=== PATIENT | male | born 1945 | race Hispanic/Latino ===

== ENCOUNTER 2018-12-10 14:21 | Inpatient (IN) | payer MEDICARE ==
[~2018-12-10] VITALS: Ht 165.1 cm; Wt 73.5 kg
[2018-12-10 14:57] LABS: BASOPHILS % (AUTO) 0.6 % (0.0-5.0); HEMATOCRIT 39.2 % (42-54); LYMPHOCYTES % (AUTO) 17.9 % (21.0-51.0); MEAN CORPUSCULAR HEMOGLOBIN 31.4 pg (27.0-33.0); MEAN CORPUSCULAR HGB CONC 34.1 g/dL (32.0-36.0); MEAN CORPUSCULAR VOLUME 92.3 fL (79-99); MONOCYTES % (AUTO) 11.5 % (3.0-13.0); PLATELET COUNT (AUTO) 203 K/uL (130-400); RED BLOOD CELL COUNT(AUTO) 4.25 MIL/uL (4.50-6.20); RED CELL DISTRIBUTION WIDTH 13.8 % (11.0-15.5); WHITE BLOOD COUNT (AUTO) 7.4 K/uL (4.8-10.8)
[2018-12-10 15:07] LABS: APPEARANCE,URINE Clear (CLEAR); BILIRUBIN,URINE Negative (NEGATIVE); COLOR,URINE Yellow (YELLOW); GLUCOSE, URINE (UA) Negative (NEGATIVE); KETONES,URINE Negative (NEGATIVE); LEUKOCYTE ESTERASE ,URINE Trace (NEGATIVE); NITRATE,URINE Negative (NEGATIVE); OCCULT BLOOD,URINE Negative (NEGATIVE); PH,URINE 6.5 (5.0-8.0); PROTEIN,URINE Negative (NEGATIVE)
[2018-12-10 15:08] LABS: POTASSIUM 3.9 mmol/L (3.5-5.1)
[2018-12-10 15:12] LABS: ALBUMIN 3.2 g/dL (3.5-5.0); BILIRUBIN,TOTAL 0.9 mg/dL (0.2-1.0); TOTAL PROTEIN, SERUM 7.4 g/dL (6.0-8.3)
[2018-12-10 15:17] LABS: BACTERIA,URINE None Seen /HPF (None Seen); RBC,URINE None Seen /HPF (0-1); TRANSITIONAL EPI CELLS,URINE Few /HPF (None Seen); WBC,URINE 0-1 /HPF (0-1)
[2018-12-10] MEDS ORDERED: SODIUM CHLORIDE 0.9% 1000ML 1,000 ML IV ONE (15:42)
[2018-12-10] MEDS ORDERED: ONDANSETRON HCL 4 MG/2 ML VIAL ONE (15:42)
[2018-12-10] MEDS ORDERED: CEFTRIAXONE SODIUM 1 GM ONE (18:03)
[2018-12-10] MEDS ORDERED: 1/2 NORMAL SALINE 1,000 ML IV ONE (18:03)
[2018-12-10] MEDS ORDERED: SODIUM CHLORIDE 0.9% 100 ML IV ONE (18:05)
[2018-12-10] MEDS ORDERED: NITROGLYCERIN 0.4 MG SL TAB SL PRN (18:15)
[2018-12-10] MEDS ORDERED: DiphenhydrAMINE HCL 50 MG/ML VIAL IVP PRN (18:15)
[2018-12-10] MEDS ORDERED: MAG HYDROX/AL HYDROX/SIMETH ES 30 ML SUSP UDCUP PO PRN (18:15)
[2018-12-10] MEDS ORDERED: ACETAMINOPHEN 325 MG TAB PO PRN ×2 (18:15)
[2018-12-10] MEDS ORDERED: ONDANSETRON HCL 4 MG/2 ML VIAL IVP PRN (18:15)
[2018-12-10] MEDS ORDERED: DIPHENHYDRAMINE HCL 25 MG CAPSULE PO PRN (18:15)
[2018-12-10] MEDS ORDERED: LACTULOSE 20 GM/30 ML UDCUP PO PRN (18:15)
[2018-12-10] MEDS ORDERED: CLONIDINE HCL 0.1 MG TABLET PO PRN (18:15)
[2018-12-10] MEDS: 1/2 NORMAL SALINE 1,000 ML IV SCH (18:15)
[2018-12-10] MEDS ORDERED: PEG 3350/NA SULF,BICARB,CL/KCL 4000 ML SOLN PO SCH (19:00)
[2018-12-10 22:30] VITALS: BP 145/55
--- NOTE | 2018-12-10 22:45 | NUR ---
Admission Assessment Received pt from ED accompanied by spouse, Jesús in progress, 1/2 NS at 80cc infusing well. Routine admission assessment, plan of care discuss, confirmed awareness of plan for Colonoscopy & reason why need to have such procedure. All blood works result with radiologic study review with pt. Per pt stated abdominal pain started today, initially does not want to come in but was encourage by his daughter. Pt claimed he had a colonoscopy 5-6 years ago & was advise to have a repeat colonoscopy. Pt made aware that he has to finish the Jesús by 0200, agreed. BSC place close to his bed, & encourage to call for assistance once he has the urge to defecate.
[2018-12-10] MEDS ORDERED: METF-446 PO (23:23)
[2018-12-10] MEDS ORDERED: EZET10 PO (23:23)
[2018-12-10] MEDS ORDERED: ozempic (23:23)
[2018-12-10] MEDS ORDERED: LOSA50TA64 PO (23:23)
[2018-12-10] MEDS ORDERED: PIOG15TA66 PO (23:23)
[2018-12-10] MEDS ORDERED: AEC81 PO (23:23)
[2018-12-10] MEDS ORDERED: ATOR40TA69 PO (23:23)
[2018-12-11] VITALS (22 sets, daily range): BP systolic 105–142; BP diastolic 52–87
--- NOTE | 2018-12-11 06:07 | NUR ---
Re: Bowel prep Patient tolerated the Golytely with last BM at 0245 noted clear yellow, reminded to remain NPO at this time.
[2018-12-11 06:22] LABS: HEMATOCRIT 34.8 % (42-54); MEAN CORPUSCULAR HEMOGLOBIN 32.1 pg (27.0-33.0); MEAN CORPUSCULAR HGB CONC 34.9 g/dL (32.0-36.0); MEAN CORPUSCULAR VOLUME 92.1 fL (79-99); NUCLEATED RED BLOOD CELLS 0.4 % (0.0-0.19); PLATELET COUNT (AUTO) 169 K/uL (130-400); RED BLOOD CELL COUNT(AUTO) 3.78 MIL/uL (4.50-6.20); RED CELL DISTRIBUTION WIDTH 13.5 % (11.0-15.5); WHITE BLOOD COUNT (AUTO) 6.2 K/uL (4.8-10.8)
[2018-12-11 06:31] LABS: POTASSIUM 3.4 mmol/L (3.5-5.1)
[2018-12-11 07:28] LABS: LYMPHOCYTES % (MANUAL) 10 % (22-44); MAN.DIFF COMMENT-IMPRESSION MANUAL DIFFERENTIAL; MONOCYTES % (MANUAL) 5 % (2-9); SEGMENTED NEUTROPHILS % 85 % (40-70)
[2018-12-11 07:29] LABS: PLATELET MORPHOLOGY COMMENT ADEQUATE
--- NOTE | 2018-12-11 08:47 | NUR ---
TO GI LAB PATIENT TRANSFERRED TO GI LAB FOR COLONOSCOPY VIA STRETCHER IN STABLE CONDITION.
[2018-12-11] MEDS ORDERED: LIDOCAINE HCL 1% 20 ML VIAL ONE (09:35)
[2018-12-11] MEDS ORDERED: PROPOFOL 10 MG/ML 20ML VIAL IV ONE (09:35)
[2018-12-11] MEDS: 1/2 NORMAL SALINE 1,000 ML IV SCH (10:59)
[2018-12-11] MEDS: LEVOFLOXACIN 750 MG/D5W 150 ML 150 ML IV SCH (11:23)
[2018-12-11] MEDS: METRONIDAZOLE 500MG/100ML BAG 100 ML IV SCH ×2 (13:31→21:06)
--- NOTE | 2018-12-11 17:25 | NUR ---
D/C PLAN CM spoke to pt regarding d/c planning. Spouse at bedside. Pt is ind. with ADL's states spouse can assist in care if needed. Plan to home. No needs verbalized or identified. Addendum: 12/11/18 at 1726 by MADDIE VACA CM Amended: Links added.
[2018-12-11] MEDS: ASPIRIN 81 MG EC TAB PO SCH (21:12)
[2018-12-11] MEDS: ATORVASTATIN CALCIUM 40 MG TABLET PO SCH (21:12)
[2018-12-12] MEDS: 1/2 NORMAL SALINE 1,000 ML IV SCH ×2 (00:47→21:46)
[2018-12-12 03:58] VITALS: BP 112/57
[2018-12-12] MEDS: METRONIDAZOLE 500MG/100ML BAG 100 ML IV SCH ×3 (06:04→21:00)
[2018-12-12 06:25] LABS: CREATININE 0.9 mg/dL (0.5-1.5); MAGNESIUM 1.7 mg/dL (1.80-2.40); POTASSIUM 3.4 mmol/L (3.5-5.1)
[2018-12-12 08:00] VITALS: BP 129/69
[2018-12-12] MEDS ORDERED: OZEMPIC 2 MG PO SCH (09:00)
[2018-12-12] MEDS: METFORMIN HCL 500 MG TABLET PO SCH ×2 (09:20→17:52)
[2018-12-12] MEDS: EZETIMIBE 10 MG TAB PO SCH (09:20)
[2018-12-12] MEDS: LOSARTAN 50 MG TABLET PO SCH (09:20)
[2018-12-12] MEDS: PIOGLITAZONE HCL 15 MG TAB PO SCH (09:20)
[2018-12-12] MEDS: LEVOFLOXACIN 750 MG/D5W 150 ML 150 ML IV SCH (09:21)
[2018-12-12 11:58] VITALS: BP 130/66
[2018-12-12 16:00] VITALS: BP 114/61
[2018-12-12] MEDS ORDERED: POTASSIUM CHLORIDE 20 MEQ ERTAB PO SCH (17:45)
[2018-12-12] MEDS: MAGNESIUM 2GM PREMIX 50ML 50 ML IV PRN (18:49)
[2018-12-12 19:28] VITALS: BP 128/50
[2018-12-12] MEDS: ASPIRIN 81 MG EC TAB PO SCH (20:57)
[2018-12-12] MEDS: ATORVASTATIN CALCIUM 40 MG TABLET PO SCH (20:57)
[2018-12-13] VITALS: BP 122/61
[2018-12-13 04:00] VITALS: BP 126/67
[2018-12-13 04:58] LABS: HEMATOCRIT 34.3 % (42-54); MEAN CORPUSCULAR HEMOGLOBIN 31.7 pg (27.0-33.0); MEAN CORPUSCULAR HGB CONC 34.5 g/dL (32.0-36.0); MEAN CORPUSCULAR VOLUME 91.9 fL (79-99); PLATELET COUNT (AUTO) 173 K/uL (130-400); RED BLOOD CELL COUNT(AUTO) 3.73 MIL/uL (4.50-6.20); RED CELL DISTRIBUTION WIDTH 13.6 % (11.0-15.5); WHITE BLOOD COUNT (AUTO) 4.6 K/uL (4.8-10.8)
[2018-12-13 05:15] LABS: CREATININE 0.9 mg/dL (0.5-1.5); POTASSIUM 3.9 mmol/L (3.5-5.1)
[2018-12-13] MEDS: METRONIDAZOLE 500MG/100ML BAG 100 ML IV SCH (05:31)
[2018-12-13 07:00] VITALS: BP 124/65
[2018-12-13] MEDS ORDERED: METRONIDAZOLE 500 MG TABLET PO SCH (09:00)
[2018-12-13] MEDS ORDERED: LEVOFLOXACIN 500 MG TABLET PO SCH (09:00)
[2018-12-13] MEDS ORDERED: LEVO500T89 PO (09:01)
[2018-12-13] MEDS ORDERED: METR-172 PO (09:01)
[2018-12-13] MEDS: LOSARTAN 50 MG TABLET PO SCH (09:07)
[2018-12-13] MEDS: EZETIMIBE 10 MG TAB PO SCH (09:07)
[2018-12-13] MEDS: METFORMIN HCL 500 MG TABLET PO SCH (09:07)
[2018-12-13] MEDS: PIOGLITAZONE HCL 15 MG TAB PO SCH (09:07)
[2018-12-13] MEDS: MAGNESIUM 2GM PREMIX 50ML 50 ML IV PRN (09:14)
[2018-12-13 11:00] VITALS: BP 127/70
--- NOTE | 2018-12-13 13:00 | NUR ---
DISCHARGE INSTRUCTIONS GIVEN. PATIENT VERBALIZED VIA TEACH BACK. IV DISCONTINUED WITH INNER CANNULA INTACT. ALL QUESTIONS ANSWERED. PATIENT TO START ON LEVAQUIN AND FLAGYL
== END 2018-12-13 14:00 | disposition home or self-care (01) | DRG 392 ==
LOC: EDH 14:21 → EDHIP 17:20 → 3BH 20:06
PROVIDERS: ADMIT Family Medicine; ATTEND Family Medicine
PROC: 0DJD8ZZ Inspection of Lower Intestinal Tract, Via Natural or Artificial Opening Endoscopic (ICD-10-PCS; principal; 2018-12-11)
DX: K57.32 Diverticulitis of large intestine without perforation or abscess without bleeding (principal); I10 Essential (primary) hypertension; E78.5 Hyperlipidemia, unspecified; E11.9 Type 2 diabetes mellitus without complications; E11.65 Type 2 diabetes mellitus with hyperglycemia; E78.00 Pure hypercholesterolemia, unspecified; E83.42 Hypomagnesemia; E87.6 Hypokalemia; R63.0 Anorexia; I25.10 Atherosclerotic heart disease of native coronary artery without angina pectoris; K59.00 Constipation, unspecified; Z80.6 Family history of leukemia; Z86.010 Personal history of colon polyps; Z95.1 Presence of aortocoronary bypass graft; Z68.27 Body mass index [BMI] 27.0-27.9, adult
CPT/HCPCS: 36415; 45378; 74176; 80048; 80053; 81001; 82948; 83690; 83735; 84484; 85025; 85027; 93005; G0378; J0696; J1956; J2405; J2704; J3475; J3490; J7030